=== PATIENT | male | born 1955 | race African-American/Black ===

== ENCOUNTER 2023-04-01 08:20 | Inpatient (IN) | payer OTHER ==
[2023-04-01 09:03] LABS: #Basophils 0.1 thou/uL (0.0-0.2); #Eosinphils 0.1 thou/uL (0.0-0.7); #Monocytes 0.5 thou/uL (0.11-0.59); #Neutrophils 3.4 thou/uL (1.40-6.50); %Basophils 0.8 % (0.0-1.0); %Eosinophils 2.3 % (0.0-10.0); %Lymphocytes 32.8 % (21.0-51.0); %Monocytes 7.8 % (0.0-10.0); Hematocrit 45.1 % (42.0-52.0); Hemoglobin 15.1 g/dL (14.0-18.0); Mean Corpuscular HGB CONC 33.5 g/dL (32.0-36.0); Mean Corpuscular Hemoglobin 31.1 pg (27.0-31.0); Mean Corpuscular Volume 92.8 fl (78.0-98.0); Mean Platelet Volume 9.3 fL (7.4-10.4); Platelet Count 329 10x3/uL (130-400); RBC Distribution Width 13.1 % (11.5-14.5); Red Blood Cell (RBC) Count 4.86 mill/uL (4.70-6.10)
[2023-04-01 09:20] LABS: Acetaminophen Less than 10 mcg/mL (10.0-30.0); Alcohol Less than 10.0 mg/dL (Less than 10); Salicylate Less than 8.0 mg/dL (15.0-30.0)
[2023-04-01 09:22] LABS: ALT (SGPT) 15 U/L (8-55); AST (SGOT) 19 U/L (5-34); Albumin 4.3 g/dL (3.4-4.8); Alkaline Phosphatase 93 U/L (40-110); Anion Gap 15 mmol/L (10-20); BUN (Urea Nitrogen) 11 mg/dL (8.4-25.7); Bilirubin, Total 1.2 mg/dL (0.2-1.2); CK (CPK) 271 U/L (30-200); Calc. Creatinine Clearance 0 mL/min (70-130); Calcium 9.4 mg/dL (7.8-10.44); Carbon Dioxide 24 mmol/L (23-31); Chloride 103 mmol/L (98-107); Estimated GFR 77; Globulin 3.2 g/dL (2.4-3.5); Glucose 100 mg/dL (80-115); Lipase 10 U/L (8-78); Potassium 4.5 mmol/L (3.5-5.1); Protein, Total 7.5 g/dL (5.8-8.1); Sodium 137 mmol/L (136-145)
[2023-04-01 09:30] LABS: Troponin I Less than 0.010 ng/mL (< 0.028)
[2023-04-01] MEDS ORDERED: Aspirin 300 MG Suppository ONE (10:13)
[2023-04-01] MEDS ORDERED: hydrALAZINE 20 MG/ML VIAL SLOW IVP PRN (10:15)
[2023-04-01 10:18] LABS: Bacteria/HPF None Seen HPF (None Seen); Bilirubin Negative (Negative); Blood, Urine Negative (Negative); CAUTI Indications for Culture Alt mental st,lethar; Clarity Clear (Clear); Glucose, Urine (Dipstick) Normal (Negative); Ketone, Urine Negative (Negative); Leukocyte Negative Leu/uL (Negative); Nitrite Negative (Negative); Protein, Urine (Dipstick) Negative (Neg-Trace); RBC/HPF 0-3 HPF (0-3); Specific Gravity, Urine 1.024 (1.002-1.036); Squamous Epithelial None Seen HPF (0-3); Urobilinogen Normal mg/dL (Less than 2); WBC/HPF 0-3 HPF (0-3)
[2023-04-01 10:20] LABS: Urine Culture Reflex No No
[2023-04-01] MEDS ORDERED: Ondansetron PF 4 MG/2 ML Vial IVP PRN (10:22)
[2023-04-01] MEDS ORDERED: Acetaminophen 650 MG Suppository PR PRN (10:22)
[2023-04-01 10:26] LABS: Amphetamine Detected (NotDetected); Barbiturates Screen Not Detected (NotDetected); Benzodiazepine Screen Not Detected (NotDetected); Cocaine Metabolite Screen Not Detected (NotDetected); Methadone Not Detected (NotDetected); Methamphetamine Detected (NotDetected); Opiate Screen Not Detected (NotDetected); Oxycodone Screen Not Detected (NotDetected); Phencyclidine (PCP) Not Detected (NotDetected); THC/Cannabinoid Screen Detected (NotDetected); Tricyclic Screen Not Detected (NotDetected)
[2023-04-01 11:03] VITALS: BMI 27.3
[2023-04-01 13:44] LABS: Troponin I Less than 0.010 ng/mL (< 0.028)
[2023-04-01] MEDS ORDERED: Ketorolac Tromethamine 30 MG (1 mL) VIAL IVP SCH (15:00)
[2023-04-01] MEDS ORDERED: Ketorolac Tromethamine 30 MG (1 mL) VIAL ONE (15:28)
[2023-04-01 19:05] LABS: Troponin I Less than 0.010 ng/mL (< 0.028)
[2023-04-01] MEDS: Atorvastatin Calcium 40 MG TAB PO SCH (21:42)
[2023-04-01] MEDS: HYDROcodone/Acetaminophen 5/325 mg Tablet PO PRN (21:42)
[2023-04-02 05:59] LABS: Anion Gap 15 mmol/L (10-20); BUN (Urea Nitrogen) 15 mg/dL (8.4-25.7); Calc. Creatinine Clearance 90 mL/min (70-130); Calcium 8.7 mg/dL (7.8-10.44); Carbon Dioxide 22 mmol/L (23-31); Cardiac Risk 5.8 (Less than 4.5); Chloride 104 mmol/L (98-107); Cholesterol 169 mg/dl (< 200 Desired); Estimated GFR 79; Glucose 97 mg/dL (80-115); HDL Cholesterol 29 mg/dL (>60 Neg Risk); LDL Cholesterol, Calculated 122 mg/dL; Potassium 3.8 mmol/L (3.5-5.1); Sodium 137 mmol/L (136-145); Triglycerides 91 mg/dL (Less than 150)
[2023-04-02] MEDS: HYDROcodone/Acetaminophen 5/325 mg Tablet PO PRN ×4 (06:05→22:04)
[2023-04-02] MEDS: Aspirin 81 mg Enteric Coated Tablet PO SCH (09:45)
[2023-04-02] MEDS: Atorvastatin Calcium 40 MG TAB PO SCH (21:59)
[2023-04-03] MEDS: HYDROcodone/Acetaminophen 5/325 mg Tablet PO PRN ×3 (08:37→21:48)
[2023-04-03] MEDS: Aspirin 81 mg Enteric Coated Tablet PO SCH (08:37)
[2023-04-03] MEDS ORDERED: Amlodipine 5 MG TAB PO SCH (09:45)
[2023-04-03 14:47] LABS: Hemoglobin A1c 6.4 % (4.0-6.0)
[2023-04-03] MEDS: Atorvastatin Calcium 40 MG TAB PO SCH (21:48)
[2023-04-04 04:49] LABS: #Basophils 0.1 thou/uL (0.0-0.2); #Eosinphils 0.2 thou/uL (0.0-0.7); #Monocytes 0.6 thou/uL (0.11-0.59); #Neutrophils 3.4 thou/uL (1.40-6.50); %Eosinophils 3.1 % (0.0-10.0); %Lymphocytes 30.4 % (21.0-51.0); %Monocytes 9.1 % (0.0-10.0); %Neutrophils 56.2 % (42.0-75.0); Hematocrit 45.9 % (42.0-52.0); Hemoglobin 15.6 g/dL (14.0-18.0); Mean Corpuscular Hemoglobin 31.5 pg (27.0-31.0); Mean Corpuscular Volume 92.7 fl (78.0-98.0); Mean Platelet Volume 9.3 fL (7.4-10.4); Platelet Count 275 10x3/uL (130-400); RBC Distribution Width 12.7 % (11.5-14.5); Red Blood Cell (RBC) Count 4.95 mill/uL (4.70-6.10); White Blood Cell (WBC) Count 6.1 10x3/uL (4.8-10.8)
[2023-04-04 05:25] LABS: Anion Gap 17 mmol/L (10-20); BUN (Urea Nitrogen) 23 mg/dL (8.4-25.7); Calc. Creatinine Clearance 99 mL/min (70-130); Calcium 8.9 mg/dL (7.8-10.44); Carbon Dioxide 18 mmol/L (23-31); Chloride 106 mmol/L (98-107); Estimated GFR 88; Glucose 101 mg/dL (80-115); Sodium 137 mmol/L (136-145)
[2023-04-04] MEDS: Aspirin 81 mg Enteric Coated Tablet PO SCH (08:28)
[2023-04-04] MEDS: HYDROcodone/Acetaminophen 5/325 mg Tablet PO PRN ×2 (08:28→20:06)
[2023-04-04] MEDS: Amlodipine 5 MG TAB PO SCH (08:28)
[2023-04-04] MEDS: Atorvastatin Calcium 40 MG TAB PO SCH (20:07)
[2023-04-05] MEDS: HYDROcodone/Acetaminophen 5/325 mg Tablet PO PRN ×3 (00:12→18:25)
[2023-04-05 05:19] LABS: #Basophils 0.1 thou/uL (0.0-0.2); #Eosinphils 0.2 thou/uL (0.0-0.7); #Monocytes 0.5 thou/uL (0.11-0.59); %Basophils 0.9 % (0.0-1.0); %Eosinophils 3.3 % (0.0-10.0); %Lymphocytes 34.2 % (21.0-51.0); %Monocytes 8.7 % (0.0-10.0); %Neutrophils 52.7 % (42.0-75.0); Hematocrit 46.9 % (42.0-52.0); Hemoglobin 15.7 g/dL (14.0-18.0); Mean Corpuscular HGB CONC 33.5 g/dL (32.0-36.0); Mean Corpuscular Volume 92.5 fl (78.0-98.0); Mean Platelet Volume 9.2 fL (7.4-10.4); Platelet Count 279 10x3/uL (130-400); RBC Distribution Width 12.6 % (11.5-14.5); Red Blood Cell (RBC) Count 5.07 mill/uL (4.70-6.10); White Blood Cell (WBC) Count 5.8 10x3/uL (4.8-10.8)
[2023-04-05 05:47] LABS: Anion Gap 15 mmol/L (10-20); BUN (Urea Nitrogen) 27 mg/dL (8.4-25.7); Calc. Creatinine Clearance 89 mL/min (70-130); Calcium 9.2 mg/dL (7.8-10.44); Carbon Dioxide 20 mmol/L (23-31); Chloride 107 mmol/L (98-107); Estimated GFR 77; Glucose 105 mg/dL (80-115); Potassium 4.3 mmol/L (3.5-5.1); Sodium 138 mmol/L (136-145)
[2023-04-05] MEDS: Aspirin 81 mg Enteric Coated Tablet PO SCH (08:47)
[2023-04-05] MEDS: Amlodipine 5 MG TAB PO SCH (08:47)
[2023-04-05] MEDS: Atorvastatin Calcium 40 MG TAB PO SCH (20:54)
[2023-04-06] MEDS: Amlodipine 5 MG TAB PO SCH (08:25)
[2023-04-06] MEDS: HYDROcodone/Acetaminophen 5/325 mg Tablet PO PRN ×2 (08:25→16:22)
[2023-04-06] MEDS: Aspirin 81 mg Enteric Coated Tablet PO SCH (08:25)
[2023-04-06] MEDS ORDERED: Polyethylene Glycol 3350 17 GM Packet PO PRN (10:50)
[2023-04-06] MEDS ORDERED: Docusate 100 MG CAP PO PRN (10:50)
[2023-04-06] MEDS: Atorvastatin Calcium 40 MG TAB PO SCH (20:13)
[2023-04-06 23:20] VITALS: BP 136/78; TEMP 97.7
== END 2023-04-07 00:42 | DRG 65 ==
LOC: ERS 08:20 → ERHOLD 10:24 → 2SE 20:07
PROVIDERS: ADMIT Student in an Organized Health Care Education/Training Program; ATTEND Hospitalist
PROC: 4A10X4Z Monitoring of Central Nervous Electrical Activity, External Approach (ICD-10-PCS; principal; 2023-04-03)
DX: I63.9 Cerebral infarction, unspecified (principal); G81.94 Hemiplegia, unspecified affecting left nondominant side; I44.0 Atrioventricular block, first degree; F17.210 Nicotine dependence, cigarettes, uncomplicated; I10 Essential (primary) hypertension; Z98.890 Other specified postprocedural states
CPT/HCPCS: 36415; 36416; 70450; 70551; 71260; 74177; 80048; 80053; 80061; 80306; 80307; 81001; 82550; 83036; 83690; 84443; 84484; 85025; 93005; 93306; 93880; 95711; 95819; J1885